=== PATIENT | female | born 1985 | race Two or more races ===

== ENCOUNTER 2024-09-28 03:35 | Emergency (ER) | payer MEDICAID, SELFPAY ==
[2024-09-28 03:36] VITALS: BMI 34.4
[2024-09-28 03:47] VITALS: BP 120/83; PULSE 100; RESP 17; TEMP 36.9; O2SAT 94
--- NOTE | 2024-09-28 04:00 | XR_ITS ---
Examination: PA chest single view TECHNIQUE: Upright PA chest single view Exam date and time: September 28, 2024 0409 hours INDICATIONS: Coughing beginning 2 weeks ago. FINDINGS: Normal heart size. Lungs are clear. Intact osseous structures IMPRESSION: No active disease
--- NOTE | 2024-09-28 04:00 | PD.EDRME ---
Rapid Medical Screening Exam [facility] Arrival date/time: 09/28/24 03:35 39F with history of asthma presents to ED with 2 weeks of cough and intermittent SOB. Patient ran out of her normal meds in these past 2 weeks including albuterol and Advair. Chief Complaint: Shortness of Breath/Dyspnea Vital signs: Vital Signs Temperature 98.4 F 09/28/24 03:47 Pulse Rate 100 09/28/24 03:47 Respiratory Rate 17 09/28/24 03:47 Blood Pressure 120/83 09/28/24 03:47 Pulse Oximetry (%) 94 L 09/28/24 03:47 Oxygen Delivery Method Room Air 09/28/24 03:47
[2024-09-28] MEDS: ALBUTEROL/IPRATROPIUM (Duoneb) RT SOL 3 ML NEBU 6 ML INH (04:25)
[2024-09-28 04:26] VITALS: PULSE 95; RESP 20; O2SAT 99
[2024-09-28] MEDS: DEXAMETHASONE SOD PHOS INJ 10 MG/ML VIAL PO (04:48)
[2024-09-28 05:44] VITALS: BP 133/88; PULSE 93; RESP 18; TEMP 36.8; O2SAT 96
== END 2024-09-28 10:58 | disposition left against medical advice (07) ==
PROVIDERS: Emergency Provider Emergency Medicine; PCP Family Medicine
DX: R06.02 Shortness of breath (principal); R05.9 Cough, unspecified; J45.909 Unspecified asthma, uncomplicated
CPT/HCPCS: 71045; 94640; 99281; A9270; J1100